=== PATIENT | female | born 1970 | race Caucasian/White ===

== ENCOUNTER 2020-07-24 18:48 | Emergency (ER) | payer OTHER, SELFPAY ==
--- NOTE | 2020-07-24 18:56 | ED.LOWEXIN ---
HPI - Extremity Injury (Lower) General Chief Complaint: Extremity Injury, Lower Stated Complaint: left leg pain Time Seen by Provider: 07/24/20 18:56 Source: patient and RN notes reviewed Mode of arrival: ambulatory Limitations: no limitations History of Present Illness HPI Narrative: 50-year-old female presents to the [facility] with complaints of left calf pain. Patient states that she was on her toes reaching for some blinds when she felt 3 pops posterior calf. States that it hurts to walk flat-footed. No treatment prior to arrival. Happened a couple hours ago. Denies any significant past medical history. No swelling, bruising. Positive pedal pulse. Capillary refill under 2 seconds. Full range of motion active and passive of the ankle distal to pain Related Data Allergies Allergy/AdvReac Type Severity Reaction Status Date / Time No Known Allergies Allergy Unknown Verified 08/25/18 13:57 Review of Systems Review of Systems: All systems reviewed & are unremarkable except as noted in HPI and below Constitutional: Constitutional: Reports no additional constitutional complaints Cardiovascular: Cardiovascular: Reports no additional cardiovascular complaints and Denies chest pain Respiratory: Respiratory: Reports no additional respiratory complaints, Denies cough and Denies dyspnea Gastrointestinal: Gastrointestinal: Reports no additional gastrointestinal complaints, Denies abdominal pain, Denies diarrhea, Denies nausea and Denies vomiting Musculoskeletal: Musculoskeletal: Reports as per HPI and Reports muscle cramps (Left calf) Integumentary/Breasts: Skin/Breast: Reports system reviewed and no additional complaints, except as docu Neurologic: Reports system reviewed and no additional complaints, except as documented Psychiatric: Psychiatric: Reports no additional psychiatric complaints [facility] Past Medical History Medical History Anxiety Essential hypertension GERD (gastroesophageal reflux disease) Leukocytosis Surgical History Surgical History H/O dilation and curettage H/O exploratory laparotomy Family History Family History Father Malignant neoplasm of prostate Mother Schizophrenia Social History Social History Smoking status: Heavy tobacco smoker Alcohol intake: current Comments At the time of my signature, I reviewed and agree with the nursing past medical, surgical, social, and family history. There is no relevant family history pertinent to the patient complaint. Exam Const: General: healthy appearing, no acute distress and alert Nutritional Appearance: well nourished Orientation/consciousness: patient oriented x3 Limitations: no limitations HENMT: Head: normal to inspection Neck: Neck: normal visual inspection Chest: Chest palpation & inspection: normal inspection of the chest Resp: Effort & Inspection: normal respiratory effort and no use of accessory muscles Auscultation: clear to auscultation bilaterally, no crackles, no rales, no rhonchi and no wheezes Cardio: Rate: regular rate Rhythm: regular rhythm : General: Yes no CVA tenderness Back/Spine/Pelvis: Back: no CVA tenderness Skin: General skin exam: normal color Rashes: no rashes Wounds: no wounds Neuro: General: patient oriented x3, moves all extremities and no meningeal signs Speech: normal speech Gait exam (Neuro): Normal gait present Extrem: General: full ROM, capillary refill normal, no pedal edema and calf tenderness on the left Upper/lower leg/hip images: 1. Tenderness to palpation. No swelling. Mid calf spoke with measures 36 cm. No swelling, bruising, discoloration. Positive pedal pulse. Negative Homans' sign Psych: Appearance: grossly normal and well kempt Mental Status: mental status grossly normal
[2020-07-24 18:58] VITALS: BP 140/83; PULSE 102; RESP 16; TEMP 36.8; O2SAT 98
== END 2020-07-24 19:13 | disposition home or self-care (01) ==
PROVIDERS: Emergency Provider Nurse Practitioner
DX: S86.112A Strain of other muscle(s) and tendon(s) of posterior muscle group at lower leg level, left leg, initial encounter (principal); X50.0XXA Overexertion from strenuous movement or load, initial encounter; I10 Essential (primary) hypertension; K21.9 Gastro-esophageal reflux disease without esophagitis; F17.200 Nicotine dependence, unspecified, uncomplicated
CPT/HCPCS: 99213; G0463

== ENCOUNTER 2020-11-20 20:20 | Emergency (ER) | payer OTHER, SELFPAY ==
--- NOTE | ~2020-11-20 | XR_ITS ---
EXAMINATION: XR knee RT min 4V DATE: 11/20/2020 21:07 INDICATION: Right knee pain TECHNIQUE: Four views of the right knee were obtained. COMPARISON: None. FINDINGS: Alignment is normal. No fracture or osteochondral lesion. Joint spaces are normal with no e rosions. There is a moderate size knee joint effusion. Soft tissues are unremarkable. IMPRESSION: 1. Moderate size knee joint effusion without acute osseous abnormality. Reviewed, dictated and finalized at location A.
[2020-11-20 20:57] VITALS: BP 135/87; PULSE 90; RESP 19; TEMP 36.6; O2SAT 98
--- NOTE | 2020-11-20 22:35 | ED.LOWEXIN ---
HPI - Extremity Injury (Lower) General Chief Complaint: Extremity Injury, Lower Stated Complaint: Right knee pain History of Present Illness HPI Narrative: Patient is a 50-year-old female who presents ER with right knee pain. 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 She had some pain initially after that. After walking over the last 2 weeks she has developed increased discomfort and swelling. Pain is over the medial joint line. No numbness or tingling to lower extremity. No redness to the joint. Denies fevers or chills or sweats. No additional concerns. Related Data Allergies Allergy/AdvReac Type Severity Reaction Status Date / Time No Known Allergies Allergy Unknown Verified 11/20/20 21:03 Review of Systems Review of Systems: All systems reviewed & are unremarkable except as noted in HPI and below Constitutional: Constitutional: Denies chills, Denies fever(s) and Denies weakness Musculoskeletal: Musculoskeletal: Reports arthralgias, Reports joint swelling and Denies muscle cramps Neurologic: Denies focal weakness and Denies numbness PMFSH Past Medical History Medical History Anxiety Essential hypertension GERD (gastroesophageal reflux disease) Leukocytosis Surgical History Surgical History H/O dilation and curettage H/O exploratory laparotomy Family History Family History Father Malignant neoplasm of prostate Mother Schizophrenia Social History Social History Smoking status: Heavy tobacco smoker Alcohol intake: current Exam Narrative: GENERAL: Well-appearing, well-nourished, and in no acute distress. HEAD: Normocephalic, atraumatic. EXTREMITIES: Normal range of motion. No edema. Mild effusion right knee with tenderness over the medial joint line. Right knee ligamentously intact with negative anterior drawer. SKIN: Warm, dry, no rash. NEURO: No focal deficits. Alert and oriented x3. PSYCH: Normal mood and affect. Course Course Emergency Course: Discussed conservative management need for follow-up with PCP. May have a meniscal injury that is causing some persistent swelling. Vital Signs Vital signs: Vital Signs Temperature 97.8 F 11/20/20 20:57 Pulse Rate 90 11/20/20 20:57 Respiratory Rate 19 11/20/20 20:57 Blood Pressure 135/87 11/20/20 20:57 Pulse Oximetry 98 11/20/20 20:57 Temperature 97.8 F 11/20/20 20:57 Pulse Rate 90 11/20/20 20:57 Respiratory Rate 19 11/20/20 20:57 Blood Pressure 135/87 11/20/20 20:57 Pulse Oximetry 98 11/20/20 20:57 MDM - Extremity Injury (Lower) Imaging Data Radiologist's impression: ITS Impressions Knee X-Ray 11/20/20 21:12 IMPRESSION: 1. Moderate size knee joint effusion without acute osseous abnormality. Discharge Plan Discharge Clinical Impression: Effusion of knee Patient Disposition: Home, Self-Care Condition: Stable Instructions: R.I.C.E. Treatment (ED) Additional Instructions: Return the ER if you have chest pain or shortness of breath, you cannot keep down food or water, you have additional injury, you have other concerns. Follow-up with your primary care physician for further treatment evaluation. If you have a meniscus injury you may require referral to physical therapy if your pain persists and you continue to have swelling. Take ibuprofen as needed for pain. Prescriptions: New ibuprofen 600 mg tablet 600 mg PO TID Qty: 20 RF: 0 No Action baclofen 10 mg tablet 10 mg PO TID PRN (Reason: muscle pain) Qty: 10 RF: 0 Follow-up/Referrals: Eli Callejas MD [Physician] - 1 Week PHYSICIAN,OVEN STRIPPER [Primary Care Provider] -
[2020-11-20 22:58] VITALS: BP 136/72; PULSE 77; RESP 18; O2SAT 100
== END 2020-11-20 22:58 | disposition home or self-care (01) ==
PROVIDERS: Emergency Provider Emergency Medicine
DX: M25.461 Effusion, right knee (principal); I10 Essential (primary) hypertension; K21.9 Gastro-esophageal reflux disease without esophagitis; F17.200 Nicotine dependence, unspecified, uncomplicated; X50.9XXA Other and unspecified overexertion or strenuous movements or postures, initial encounter
CPT/HCPCS: 73564; 99283

== ENCOUNTER 2021-02-14 12:52 | Emergency (ER) | payer OTHER, SELFPAY ==
[2021-02-14 13:11] VITALS: BP 134/83; PULSE 77; RESP 16; TEMP 36.6; O2SAT 98
== END 2021-02-14 14:15 | disposition left against medical advice (07) ==
LOC: EXPCOLL 12:56
PROVIDERS: Emergency Provider Nurse Practitioner; PCP Internal Medicine
DX: Z53.21 Procedure and treatment not carried out due to patient leaving prior to being seen by health care provider (principal)
CPT/HCPCS: 99199

== ENCOUNTER 2023-01-20 12:10 | Emergency (ER) | payer OTHER, SELFPAY ==
[2023-01-20 12:27] VITALS: BP 122/82; PULSE 98; RESP 16; TEMP 37.2; O2SAT 97
--- NOTE | 2023-01-26 18:35 | ED.URI ---
HPI - URI/Sore Throat General Chief Complaint: Upper Respiratory Infection Stated Complaint: knot on neck, ear hurts, hurts to swallow Time Seen by Provider: 01/20/23 13:20 Source: patient Mode of arrival: ambulatory Limitations: no limitations History of Present Illness HPI Narrative: 52 yo F presents with c/o sinus congestion, PND, sinus pressure for approx. 10 to 14 days. Called PCP off regarding symptoms and also has swollen lymph node to neck at that time. Was given abx. Finsihed all of abx and no improvement of symptoms other than lymph node improved. Now has pain to L ear. Afebrile. All systems reviewed and negative except as noted above. Related Data Home Medications Medication Instructions Recorded Confirmed allopurinol 100 mg tablet mg 01/20/23 aspirin 81 mg tablet,delayed mg 01/20/23 release atorvastatin 10 mg tablet mg 01/20/23 diclofenac sodium 75 mg mg PO 01/20/23 tablet,delayed release ergocalciferol (vitamin D2) 1,250 01/20/23 mcg (50,000 unit) capsule ferrous sulfate 325 mg (65 mg mg 01/20/23 iron) tablet (FeroSul) fluticasone propionate 50 intranasal 01/20/23 mcg/actuation nasal spray,suspension levocetirizine 5 mg tablet mg 01/20/23 lisinopril 5 mg tablet mg 01/20/23 metformin 500 mg tablet,extended mg PO 01/20/23 release 24 hr varenicline 0.5 mg (11)-1 mg (42) ea 01/20/23 tablets in a dose pack varenicline 0.5 mg (11)-1 mg (42) ea 01/20/23 tablets in a dose pack varenicline 0.5 mg (11)-1 mg (42) ea 01/20/23 tablets in a dose pack Allergies Allergy/AdvReac Type Severity Reaction Status Date / Time No Known Allergies Allergy Unknown Verified 01/20/23 12:36 Review of Systems Review of Systems: CONSTITUTIONAL: Denies fever, chills, or sweats. EYES: Denies visual changes, redness, or discharge. ENT: Reports rhinorrhea, congestion, left ear pain. Denies sore throat CARDIOVASCULAR: Denies chest pain, palpitations, or edema. RESPIRATORY: reports cough. Denies dyspnea. GASTROINTESTINAL: Denies abdominal pain, nausea, vomiting, or diarrhea. GENITOURINARY: Denies dysuria or hematuria. SKIN: Denies rash or itching. MUSCULOSKELETAL: Denies back pain, joint pain, or myalgia. NEUROLOGIC: Denies headache, numbness, or weakness. PSYCHIATRIC: Denies anxiety or depression. All other systems reviewed are negative, except as documented in HPI. [facility] Past Medical History Medical History Anxiety Essential hypertension GERD (gastroesophageal reflux disease) Leukocytosis Surgical History Surgical History H/O dilation and curettage H/O exploratory laparotomy Family History Family History Father Malignant neoplasm of prostate Mother Schizophrenia Social History Social History Smoking status: Heavy tobacco smoker Alcohol intake: current Comments At time of signature, agree with nursing past medical, surgical, social and family history. There is no relevant family history pertinent to the presenting complaint. Exam Narrative: GENERAL: This is a well-nourished, well-developed patient, in no apparent distress. HEAD: normocephalic, atraumatic. EYES: PERRL. Sclera clear/white. Vision is grossly intact. EARS: External ears normal, auditory canals clear and without drainage, mild clear fluid to bilateral TMs without erythema, bulging or perforation. Hearing grossly intact. NOSE: External nose normal with where nasal drainage, moderate congestion with erythema and swelling to bilateral nares. THROAT: Mucous membranes moist, Clear postnasal drainage without significant erythema. NECK: Neck supple, non-tender without lymphadenopathy, masses or thyromegaly. CARDIOVASCULAR: Regular rate and rhythm without murmurs, gallops, or rubs. RESPIRATORY: Clear
== END 2023-01-20 13:54 | disposition home or self-care (01) ==
PROVIDERS: Emergency Provider Nurse Practitioner Family; PCP Family Medicine
DX: J34.89 Other specified disorders of nose and nasal sinuses (principal); J01.90 Acute sinusitis, unspecified; I10 Essential (primary) hypertension; K21.9 Gastro-esophageal reflux disease without esophagitis
CPT/HCPCS: 99213; G0463

== ENCOUNTER 2023-08-20 21:48 | Emergency (ER) | payer OTHER, SELFPAY ==
--- NOTE | ~2023-08-20 | XR_ITS ---
EXAMINATION: XR chest 1V portable Exam Date/Time: 08/20/2023 22:06 CDT HISTORY: left face and arm numbness,SOB Comparison: 08/25/2018. RESULT: Lines, tubes, and devices: None. Lungs and pleura: Clear. Cardiomediastinal silhouette: Stable. Other: No acute osseous or upper abdominal finding. IMPRESSION: No acute cardiopulmonary process. Reviewed, dictated and finalized at location K.
--- NOTE | ~2023-08-20 | CT_ITS ---
EXAMINATION: CTA brain carotid DATE: 08/20/2023 22:08 INDICATION: neuro deficit TECHNIQUE: Computed tomographic angiography (CTA) of the head and neck was performed with 100 mL Omni paque-350 intravenous contrast. Automated exposure control and iterative reconstruction technique wer e employed. The dose-length product was 1008.80 mGy-cm. Maximum intensity projection and volume rend ered 3D-reconstructions were created by the technologist on a separate workstation. COMPARISON: CT brain, same date. FINDINGS: CTA HEAD: No large vessel occlusion, aneurysm, high flow vascular malformation, nidus or extravasation. Symmetr ic parenchymal enhancement. Patent cerebral veins. CTA NECK: Aortic arch and proximal great vessels: Normal arch anatomy. Right common carotid, carotid bifurcation, and internal carotid artery: Minimal noncalcified plaque a t the bifurcation.There is 0% stenosis of the proximal right internal carotid artery relative to norm al distal artery lumen diameter (NASCET criteria). Left common carotid, carotid bifurcation, and internal carotid artery: Minimal noncalcified plaque at the bifurcation.There is 0% stenosis of the proximal left internal carotid artery relative to normal distal artery lumen diameter (NASCET criteria). Vertebral arteries: No significant plaque or stenosis. Vertebral arteries co-dominant. Other findings: None. IMPRESSION: No large vessel intracranial occlusion, high-grade intracranial stenosis, or aneurysm. No carotid or vertebral artery occlusion, dissection, or significant stenosis. Reviewed, dictated and finalized at location K. IMPRESSION: No large vessel intracranial occlusion, high-grade intracranial stenosis, or an eurysm. No carotid or vertebral artery occlusion, dissection, or significant stenosis.
--- NOTE | ~2023-08-20 | CT_ITS ---
EXAMINATION: CT brain wo con DATE: 08/20/2023 22:03 INDICATION: left face and arm numbness . TECHNIQUE: Computed tomography (CT) of the head was performed without intravenous contrast. The mA wa s adjusted according to patient size. Iterative reconstruction technique was employed. The dose-lengt h product was 605.33 mGy-cm. COMPARISON: None. FINDINGS: Mild motion artifact in the inferior portions of the scan. No acute intracranial hemorrhage or extra-axial fluid collection. No hydrocephalus, mass, or herniation. No acute ischemic infarct. Unremarkable dural venous sinus attenuation. No acute osseous abnormality. The aerated spaces are clear. IMPRESSION: No acute intracranial process. Results reported telephonically to Dr. Jackman by Dr. Oliveira at 10:07 PM on 08/20/2023. Reviewed, dictated and finalized at location K. IMPRESSION: No acute intracranial process. Results reported telephonically to Dr. Jackman by Dr. Oliveira at 10:07 PM on 2023.
[2023-08-20 21:49] VITALS: BP 189/92; PULSE 123; RESP 16; TEMP 36.3; O2SAT 99
--- NOTE | 2023-08-20 21:49 | ECG_ITS ---
Test Date: 2023-08-20 22:11:14 Measurements Intervals [place] Rate: 106 P: 64 [place]: 176 QRS: 58 QRSD: 89 T: 72 QT: 329 QTc: 438 Interpretive Statements SINUS TACHYCARDIA INCOMPLETE RIGHT BUNDLE BRANCH BLOCK LOW QRS VOLTAGE IN PRECORDIAL LEADS BORDERLINE ST-T WAVE ABNORMALITY- ANTEROLATERAL LEADS ABNORMAL ECG No previous ECG available for comparison Electronically Signed On 08-21-2023 06:24:52 CDT by Taj Hyman D.O.
[2023-08-20 21:56] LABS: Glucose Point of Care 121 mg/dl (65-105)
[2023-08-20 22:06] LABS: Basophils Absolute Auto 0.1 K/mm3 (0.0-0.1); Basophils Percent Auto 0.6 % (0.2-1.2); Eosinophils Absolute Auto 0.6 K/mm3 (0-0.3); Eosinophils Percent Auto 3.8 % (0-4.4); Hematocrit 47.4 % (37.0-47.0); Hemoglobin 15.9 g/dL (12.0-15.0); Immature Granulocyte Absolute 0.06 K/mm3 (0.00-0.031); Immature Granulocyte Percent A 0.4 % (0-0.5); Lymphocytes Absolute Auto 4.32 K/mm3 (0.9-3.2); Lymphocytes Percent Auto 27.2 % (18.3-44.2); Mean Corpuscular HGB Conc 33.5 g/dl (32-36); Mean Corpuscular Hemoglobin 31.7 pg (26-34); Mean Corpuscular Volume 94.6 fl (80-100); Mean Platelet Volume 9.2 fl (7.4-10.4); Monocytes Percent Auto 6.4 % (2.6-8.5); Neutrophils Absolute Auto 9.8 K/mm3 (1.3-6.7); Neutrophils Percent Auto 61.6 % (45.5-73.1); Platelet Count Result 373 k/mm3 (150-375); Red Blood Count 5.01 M/mm3 (4.2-5.4); Red Cell Distribution Width 13.8 % (11.5-14.5); White Blood Count 15.9 K/mm3 (4.5-10.0)
[2023-08-20 22:08] LABS: Estimated CRCL calculation 68 ml/min; Estimated Glomerular Filt Rate > 60
[2023-08-20 22:17] LABS: Partial Thromboplastin Time 28.9 Seconds (22.3-36.8)
[2023-08-20 22:20] LABS: Alanine Aminotransferase 23 U/L (6-35); Albumin Level 4.5 g/dL (3.5-5.1); Alkaline Phosphatase 100 U/L (38-126); Anion Gap 7 mmol/L (4-12); Aspartate Amino Transferase 28 U/L (14-36); Bilirubin,Total 0.6 mg/dL (0.2-1.3); Blood Urea Nitrogen 14 mg/dL (7-17); Carbon Dioxide 27 mmol/L (22-30); Chloride 106 mmol/L (98-107); Estimated CRCL calculation 76 ml/min; Estimated Glomerular Filt Rate > 60; Glucose 111 mg/dL (65-110); Potassium 3.3 mmol/L (3.4-5.0); Sodium 140 mmol/L (137-145)
[2023-08-20 22:29] LABS: Troponin I < 0.012 ng/mL (0.000-0.034)
[2023-08-20 22:35] VITALS: BP 130/87; BP 157/81; PULSE 105; PULSE 94; RESP 19; RESP 20; O2SAT 93; O2SAT 95
--- NOTE | 2023-08-20 23:05 | ED.NEUROSD ---
HPI - Neuro Symptoms/Deficit General Chief Complaint: Suspected CVA Stated Complaint: left face numbness, left arm numb Time Seen by Provider: 08/20/23 21:55 History of Present Illness HPI Narrative: Patient is a 53 year old female with history of anxiety, hypertension, prediabetes here with Chest pain and left facial pain. Patient states that earlier this afternoon she was at work and had intermittent right-sided chest pain that lasted several seconds and then resolved. She notes that it happened in intermittent episodes. 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 Denied any diaphoresis when the pain was present. Chest pain is currently not present now. She states that around 9:00 pm she began having left-sided strange sensation to her face. She notes that it felt swollen and full on the left side and had some pain that radiated into her left ear and throughout her forehead. She denies any weakness in her arms or legs. No prior history of stroke. She denies any current numbness but does describe a tingling sensation that was present over her face and left arm. She was able to ambulate into the department without any issues. She did note that the pain caused her to have some difficulty with swallowing however she has been able to keep down all of her secretions without any issues. Related Data Home Medications Medication Instructions Recorded Confirmed allopurinol 100 mg tablet mg 01/20/23 aspirin 81 mg tablet,delayed mg 01/20/23 release atorvastatin 10 mg tablet mg 01/20/23 diclofenac sodium 75 mg mg PO 01/20/23 tablet,delayed release ergocalciferol (vitamin D2) 1,250 01/20/23 mcg (50,000 unit) capsule ferrous sulfate 325 mg (65 mg mg 01/20/23 iron) tablet (FeroSul) fluticasone propionate 50 intranasal 01/20/23 mcg/actuation nasal spray,suspension levocetirizine 5 mg tablet mg 01/20/23 lisinopril 5 mg tablet mg 01/20/23 metformin 500 mg tablet,extended mg PO 01/20/23 release 24 hr varenicline 0.5 mg (11)-1 mg (42) ea 01/20/23 tablets in a dose pack varenicline 0.5 mg (11)-1 mg (42) ea 01/20/23 tablets in a dose pack varenicline 0.5 mg (11)-1 mg (42) ea 01/20/23 tablets in a dose pack Allergies Allergy/AdvReac Type Severity Reaction Status Date / Time No Known Allergies Allergy Unknown Verified 01/20/23 12:36 Review of Systems Review of Systems: All systems reviewed & are unremarkable except as noted in HPI and below PMFSH Past Medical History Medical History Anxiety Essential hypertension GERD (gastroesophageal reflux disease) Leukocytosis Surgical History Surgical History H/O dilation and curettage H/O exploratory laparotomy Family History Family History Father Malignant neoplasm of prostate Mother Schizophrenia Social History Social History Smoking status: Heavy tobacco smoker Alcohol intake: current Exam Narrative: GENERAL: Well-appearing, well-nourished, and in no acute distress. HEAD: Normocephalic, atraumatic. EYES: PERRLA and EOMI. ENT: Nares clear. Mucous membranes moist. No facial droop appreciated. No sensory deficit over the face. NECK: Supple. CHEST: Clear to auscultation. No respiratory distress. HEART: Regular rate and rhythm. Normal peripheral pulses. ABDOMEN: Soft, nontender, nondistended. EXTREMITIES: Normal range of motion. No edema. SKIN: Warm, dry, no rash. NEURO: No focal deficits. No upper or lower extremity drift. No facial droop. Normal sensation over the face and bilateral upper and lower extremities. No dysarthria or aphasia.Alert and oriented x3. PSYCH: Normal mood and affect. Course Course Emergency Course: Patient seen evaluated at stroke. On arrival to the ER. Last
[2023-08-20 23:40] LABS: Amylase 65 U/L (30-110)
[2023-08-21 00:09] VITALS: BP 108/69; PULSE 88; RESP 15; O2SAT 93
--- NOTE | 2023-08-21 01:10 | ECG_ITS ---
Test Date: 2023-08-21 01:16:19 Measurements Intervals [place] Rate: 91 P: 69 PA: 182 QRS: 48 QRSD: 82 T: 87 QT: 353 QTc: 435 Interpretive Statements SINUS RHYTHM LOW QRS VOLTAGE IN PRECORDIAL LEADS POSSIBLE RIGHT VENTRICULAR CONDUCTION DELAY BORDERLINE T WAVE ABNORMALITY- ANT/HIGH LAT LEADS BORDERLINE ECG Compared to ECG 08/20/2023 22:11:14 Sinus tachycardia no longer present Electronically Signed On 08-21-2023 06:29:17 CDT by Taj Hyman D.O.
[2023-08-21 01:47] LABS: Troponin I < 0.012 ng/mL (0.000-0.034)
[2023-08-21 02:03] VITALS: BP 108/69; PULSE 88; RESP 15; O2SAT 93
[2023-08-21 02:32] VITALS: BP 112/65; PULSE 89; RESP 18; O2SAT 93
[2023-08-21 03:17] VITALS: BP 116/66; PULSE 91; RESP 16; O2SAT 94
== END 2023-08-21 03:18 | disposition home or self-care (01) ==
PROVIDERS: Emergency Provider Student in an Organized Health Care Education/Training Program; PCP Family Medicine
DX: R22.0 Localized swelling, mass and lump, head (principal); R20.2 Paresthesia of skin; R07.89 Other chest pain; D72.829 Elevated white blood cell count, unspecified; I10 Essential (primary) hypertension; F17.200 Nicotine dependence, unspecified, uncomplicated
CPT/HCPCS: 36415; 70450; 70496; 70498; 71045; 80053; 82150; 82948; 84484; 85025; 85610; 85730; 93005; 99284; Q9967

== ENCOUNTER 2023-12-19 16:57 | Emergency (ER) | payer OTHER, SELFPAY ==
--- NOTE | ~2023-12-19 | XR_ITS ---
EXAM: XR finger 1st RT min 2V DATE: 12/19/2023 18:24 HISTORY: nail injury in safe door . COMPARISON: None available. FINDINGS: Normal mineralization. No fracture or dislocation. No lytic or blastic lesion. Mild scatte red degenerative changes. No erosion or periosteal change. Irregularity of the nail and nailbed of th e first digit. IMPRESSION: No acute osseous finding in the right first digit. Reviewed, dictated and finalized at location [facility].
[2023-12-19 17:00] VITALS: BP 152/89; PULSE 87; RESP 16; TEMP 37; O2SAT 100
--- NOTE | 2023-12-19 20:37 | ED_ITS ---
HPI - Wound/Laceration General Chief Complaint: Wound/Laceration Stated Complaint: THUMBNAIL INJURY Time Seen by Provider: 12/19/23 19:12 Source: patient Mode of arrival: ambulatory Limitations: no limitations History of Present Illness HPI narrative: Patient is a 53-year-old female who presents the ED with report of right thumb injury. Patient reports she was at work today when she accidentally closed her R thumb in the door of a large safe. Patient had acrylic nails on and states part of her nail was ripped off. Denies any other injuries. Denies numbness. Tetanus unknown. Related Data Home Medications Medication Instructions Recorded Confirmed allopurinol 100 mg tablet mg 01/20/23 aspirin 81 mg tablet,delayed mg 01/20/23 release atorvastatin 10 mg tablet mg 01/20/23 diclofenac sodium 75 mg mg PO 01/20/23 tablet,delayed release ergocalciferol (vitamin D2) 1,250 01/20/23 mcg (50,000 unit) capsule ferrous sulfate 325 mg (65 mg mg 01/20/23 iron) tablet (FeroSul) fluticasone propionate 50 intranasal 01/20/23 mcg/actuation nasal spray,suspension levocetirizine 5 mg tablet mg 01/20/23 lisinopril 5 mg tablet mg 01/20/23 metformin 500 mg tablet,extended mg PO 01/20/23 release 24 hr varenicline 0.5 mg (11)-1 mg (42) ea 01/20/23 tablets in a dose pack varenicline 0.5 mg (11)-1 mg (42) ea 01/20/23 tablets in a dose pack varenicline 0.5 mg (11)-1 mg (42) ea 01/20/23 tablets in a dose pack Allergies Allergy/AdvReac Type Severity Reaction Status Date / Time No Known Allergies Allergy Unknown Verified 01/20/23 12:36 Review of Systems Review of Systems: All systems reviewed & are unremarkable except as noted in HPI. All systems reviewed & are unremarkable except as noted in HPI and below PMFSH Past Medical History Medical History Anxiety Essential hypertension GERD (gastroesophageal reflux disease) Leukocytosis Surgical History Surgical History H/O dilation and curettage H/O exploratory laparotomy Family History Family History Father Malignant neoplasm of prostate Mother Schizophrenia Social History Social History Smoking status: Heavy tobacco smoker Alcohol intake: current Exam Narrative: GENERAL: Well appearing, obese with BMI of 35.1, non-toxic, in no acute distress. HEAD: Normocephalic, atraumatic. RESPIRATORY: Airway patent, respirations nonlabored. CARDIOVASCULAR: Regular rate and rhythm without murmurs, rubs, or gallops. Radial pulses intact. MUSCULOSKELETAL: Moves all extremities. No gross deformities. Distal sensation intact throughout R thumb. Partial nail avulsion to distal nail with avulsion of acrylic nail as well. Cuticle is intact. Distal nail bed is exposed. Minimal active bleeding. No lacerations throughout nailbed. SKIN: Warm, dry, normal color. NEURO: A&O X3. Speech clear. PSYCHIATRIC: Appropriate mood and affect. Normal interaction. Course Vital Signs Vital signs: Vital Signs Temperature 98.6 F 12/19/23 17:00 Pulse Rate 87 12/19/23 17:00 Respiratory Rate 16 12/19/23 17:00 Blood Pressure 152/89 H 12/19/23 17:00 Pulse Oximetry 100 12/19/23 17:00 Temperature 98.6 F 12/19/23 17:00 Pulse Rate 70 12/19/23 21:06 Respiratory Rate 16 12/19/23 21:06 Blood Pressure 152/89 H 12/19/23 21:06 Pulse Oximetry 98 12/19/23 21:06 MDM - Wound/Laceration MDM Narrative Medical decision making narrative: Patient presented to ED with traumatic complete distal nail avulsion. Cuticle remains intact. Minimal active bleeding. No lacerations throughout nail bed. Finger Xray is negative. No FB or fx. Tetanus was updated in the ED. Advised nail should grow back but nothing further to repair at this time. Will d/c on keflex. Will rx short course of pain medication for home. Finger/nail was bandaged in the ED. Given strict return precautions. She agrees with plan. Discharged in stable condition. Medical Records Attestation: I reviewed the patient's medical records. Imaging Data Attestation: I personally reviewed and interpreted this imaging study as follows: Radiologist's impression: ITS Impressions Finger X-Ray 12/19/23 18:28 IMPRESSION: No acute osseous finding in the right first digit. Discharge Plan Discharge Clinical Impression: Avulsion of nail of right thumb Patient Disposition: Home, Self-Care Condition: Stable Instructions: Antibiotic Form, Skin Avulsion (ED), Nail Avulsion (ED) Additional Instructions: Recommend frequent icing to finger, elevation of hand. Take antibiotics as prescribed. Continue Tylenol and ibuprofen as needed for pain. Oxycodone as needed for more severe pain. Change bandage daily, keep covered until nailbed begins to heal. Follow-up with your primary care doctor for further evaluation and to ensure i mprovement of wound. Return to the ED if you experience worsening or severe symptoms, severe pain, recurrent injury, redness streaking up the finger, fevers, or any other symptoms of concern. Prescriptions: New cephalexin 500 mg capsule 500 mg PO Q6H 5 Days Qty: 20 0RF oxycodone 5 mg tablet 5 mg PO Q6H PRN (Reason: pain) Qty: 15 0RF No Action atorvastatin 10 mg tablet allopurinol 100 mg tablet aspirin 81 mg tablet,delayed release (DR/EC) ferrous sulfate [FeroSul] 325 mg (65 mg iron) tablet diclofenac sodium 75 mg tablet,delayed release (DR/EC) PO lisinopril 5 mg tablet ergocalciferol (vitamin D2) 1,250 mcg (50,000 unit) capsule fluticasone propionate 50 mcg/actuation spray,suspension INTRANASAL metformin 500 mg tablet extended release 24 hr PO varenicline 0.5 mg (11)- 1 mg (42) tablets,dose pack varenicline 0.5 mg (11)- 1 mg (42) tablets,dose pack varenicline 0.5 mg (11)- 1 mg (42) tablets,dose pack levocetirizine 5 mg tablet benzonatate 200 mg capsule 200 mg PO TID PRN (Reason: cough) Qty: 20 0RF fluticasone propionate [Flonase Allergy Relief] 50 mcg/actuation spray,suspension 1 spray intranasal BID Qty: 16 0RF Rx Instructions: administer into each nostril Claritin-D 12 Hour 5-120 mg tablet extended release 12 hr 1 tablet PO Q12H PRN (Reason: nasal congestion) Qty: 20 0RF Follow-up/Referrals: Javier,MD Quique [Primary Care Provider] - Stand Alone Forms: Work/School Release IP Time of Disposition: 20:42
[2023-12-19] MEDS: ACETAMINOPHEN 500 MG TABLET 1000 MG PO (20:38)
[2023-12-19] MEDS: IBUPROFEN 600 MG TABLET PO (20:38)
[2023-12-19] MEDS: TETANUS,DIPHTHERIA,AC PERTUSSIS ADULT (0.5 ML) BOOSTRIX IM (20:39)
[2023-12-19 21:06] VITALS: BP 152/89; PULSE 70; RESP 16; O2SAT 98
== END 2023-12-19 21:07 | disposition home or self-care (01) ==
PROVIDERS: Emergency Provider Physician Assistant; PCP Family Medicine
DX: S61.101A Unspecified open wound of right thumb with damage to nail, initial encounter (principal); W23.0XXA Caught, crushed, jammed, or pinched between moving objects, initial encounter; Z23 Encounter for immunization; K21.9 Gastro-esophageal reflux disease without esophagitis; I10 Essential (primary) hypertension
CPT/HCPCS: 73140; 90715; 96372; 99283; A9270